=== PATIENT | female | born 1960 | race Caucasian/White ===

== ENCOUNTER 2020-07-12 08:19 | Day surgery (SDC) | payer OTHER ==
[~2020-07-12] VITALS: Ht 157.5 cm; Wt 61.4 kg
[~2020-07-12 08:19] MED LIST: CALCIUM500 MG PO; MULTIVITAMINS1 EAC7 PO; OMEGA 3 1,0001 EACH PO; VITAMIN D3 COM1 EACH PO
[2020-07-12] MEDS ORDERED: VITAMIN D350 MC3 PO (08:42)
--- NOTE | 2020-07-12 10:10 | NUR ---
07/12/20 1010 Sheets,Janneth 1000 PT ARRIVED TO PACU ON 2L VIA NC, VSS. PT WAKES EASILY AND DENIES PAIN AND NAUSEA.
--- NOTE | 2020-07-17 08:31 | OR ---
[facility] [address] [place], [place] [address] Signed DATE OF OPERATION: 07/12/2020 SURGEON: Sushant Madden MD PREOPERATIVE DIAGNOSES: 1. Colon surveillance. 2. History of colonic polyps. POSTOPERATIVE DIAGNOSIS: Diminutive polyp of the rectosigmoid (excised). PROCEDURE: Total colonoscopy to cecum with cold morcellation polypectomies. ANESTHESIA: Intravenous sedation, fentanyl 100 mcg and Versed 4 mg. INDICATIONS: This 59-year-old white woman is a patient of Joe Bradley M.D. in [place], [place]. She is here for surveillance colonoscopy. She lives in [place], [place]. She has no family history of colon cancer and no symptoms of bleeding, diarrhea, or constipation. FINDINGS: The prep was excellent. Complete colonoscopy was undertaken of the cecum without question. She had no sign of colitis or diverticular formation or large polyp, but did have what appeared to be diminutive polyps of the rectosigmoid, which were excised. DESCRIPTION OF PROCEDURE: The patient was brought to the endoscopy suite and placed in lateral decubitus position, given intravenous sedation to the point of slurred speech and nystagmus. Digital rectal examination was normal. An Olympus video colonoscope was passed into the rectum after normal anorectal examination and advanced without problem to the cecum. The ileocecal valve and appendiceal orifice were normal. The scope was withdrawn from that point. Examination throughout showed no sign of abnormality until the rectosigmoid, where a few small diminutive appearing polyps were noted. These may well be hyperplastic. They were excised in total with cold morcellation technique. Retroflexed view of the rectum was normal. Scope was removed. The patient was taken to the recovery room in good condition. Electronically Signed By: SUSHANT MADDEN MD 07/17/20 0831 PATIENT NAME: BRIA CARRION I OPERATIVE REPORT DATE OF : 62 REPORT #: [id number] PHYSICIAN: SUSHANT MADDEN MD PCP: KIRSTIN KEANE MD REPORT IS CONFIDENTIAL AND NOT TO BE RELEASED WITHOUT AUTHORIZATION [facility] [address] [place], [place] [address] Signed CONCLUDING DIAGNOSIS: Diminutive polyps of the rectosigmoid. PLAN: Recommend repeat colonoscopy in 5 years depending on pathology report. Incidentally noted was a small nodule of her . She has had this for an indeterminate amount of time. Excision in the office can be undertaken under local if she prefers, and if desired. It does not have signs of ulceration or significant pigmentation. MD ELVIRA Connolly/NANCY /[id number] cc: Joe Bradley MD Copies: JOE BRADLEY MD ~ Electronically Signed By: SUSHANT MADDEN MD 07/17/20 0831 PATIENT NAME: BRIA CARRION I OPERATIVE REPORT DATE OF : 62 REPORT #: [id number] PHYSICIAN: SUSHANT MADEDN MD PCP: KIRSTIN KEANE MD REPORT IS CONFIDENTIAL AND NOT TO BE RELEASED WITHOUT AUTHORIZATION
== END 2020-07-12 10:51 | disposition home or self-care (01) ==
LOC: OPS 08:19 → DS 08:25 → OPS 09:00 → DS 09:30 → OPS 10:51
PROVIDERS: ATTEND Surgery
PROC: 0DBN8ZX Excision of Sigmoid Colon, Via Natural or Artificial Opening Endoscopic, Diagnostic (ICD-10-PCS; principal; 2020-07-12 09:00)
DX: Z12.11 Encounter for screening for malignant neoplasm of colon (principal); K63.5 Polyp of colon; N60.11 Diffuse cystic mastopathy of right breast; Z86.010 Personal history of colon polyps; Z79.899 Other long term (current) drug therapy
CPT/HCPCS: 99153; G0500; J2250; J3010; J7121

== ENCOUNTER 2022-07-21 10:51 | Day surgery (SDC) | payer OTHER ==
[~2022-07-21] VITALS: Ht 157.5 cm; Wt 62.7 kg
[~2022-07-21 10:51] MED LIST changes: +VITAMIN D350 MC3 PO
[2022-07-21] MEDS ORDERED: MELATONIN3 MG PO (11:16)
--- NOTE | 2022-07-21 12:52 | NUR ---
07/21/22 1252 Ibeth Richardson 1249 PATIENT ARRIVES TO PACU SLEEPING. AWAKENS WITH VERBAL STIMULI, BACK TO SLEEP WHEN NOT STIMULATED. RESP EVEN AND UNLABORED, NC TURNED OFF ON ARRIVAL TO PACU, ROOM AIR SATS 100%.
--- NOTE | 2022-07-22 08:10 | OR ---
[facility] [address] [place], [place] [address] Signed DATE OF OPERATION: 07/21/2022 SURGEON: Sushant Madden MD PREOPERATIVE DIAGNOSIS: Episodic dysphagia. POSTOPERATIVE DIAGNOSES: Mild distal esophagitis and midesophageal inflammatory changes, otherwise normal. PROCEDURE: Esophagogastroduodenoscopy with biopsy. ANESTHESIA: Intravenous sedation; fentanyl 100 mcg and Versed 4 mg. INDICATION: This 61-year-old white woman is a patient Dr. Kirstin Louise and has had episodes of dysphagia. She had an episode where steak was "stuck" on April 27, 2022, where she was evaluated in the [facility] emergency room and given morphine, which ultimately was regurgitated. She does have clinical symptoms suggestive of gastroesophageal reflux. She was recommended to take Prilosec on a daily basis and her symptoms have improved a fair amount. She is admitted at this time to undergo upper endoscopy to better characterize the problem particularly to assess esophageal stricture and also for eosinophilic esophagitis. She understands the risk of upper endoscopy including but not limited to bleeding, infection, perforation, and so on. FINDINGS: Upper endoscopy was easily performed. Vocal cords including the posterior aspect appeared normal. The midesophagus did have mild concentric ring formation suggestive though not diagnostic of eosinophilic esophagitis. The distal esophagus had mild inflammation. There was no sign of Cortez's epithelium. Notably, the flap valve was quite good. The stomach and duodenum were otherwise normal. CLOtest was negative 20 minutes post procedure. DESCRIPTION OF PROCEDURE: The patient was brought to the endoscopy suite, given topical hypopharyngeal lidocaine anesthetic and placed in the lateral decubitus position. She was given intravenous sedation with full cardiopulmonary monitoring to the point of slurred speech and nystagmus. A bite block was placed. Electronically Signed By: SUSHANT MADDEN MD 07/22/22 0810 PATIENT NAME: BRIA CARRION I OPERATIVE REPORT DATE OF : 62 REPORT #: [id number] PHYSICIAN: SUSHANT MADDEN MD PCP: KIRSTIN LOUISE MD REPORT IS CONFIDENTIAL AND NOT TO BE RELEASED WITHOUT AUTHORIZATION [facility] [address] [place], [place] [address] Signed An Olympus video upper endoscope was passed in the hypopharynx. The vocal cords were thoroughly examined and normal. Scope was passed down the esophagus noting a few benign-appearing nodules in the proximal esophagus. The scope was advanced ultimately to the distal esophagus where there was no evidence of Cortez's epithelium or neoplasm. There was mild inflammation, however. The scope was passed in the stomach, which was insufflated with air. Rugal folds were normal. Scope was passed to the antrum and then through the normal-appearing pylorus into the duodenum. Duodenum appeared normal. Biopsies were taken of the 2nd and bulbar portions. The scope was withdrawn and biopsies taken of the antrum for both TRAVIS and pathologic testing. Retroflexed view was undertaken showing a surprisingly good flap valve. There was no sign of hiatal hernia proper. Further withdrawal of the scope allowed for biopsy of the distal esophageal mucosa and ultimately the midesophageal mucosa which had a ring-like appearance in some areas suggestive though not diagnostic of the eosinophilic esophagitis. Further withdrawal after biopsy of some of the nodules in the more proximal esophagus. The scope was removed and the patient was taken to the recovery room in good condition. CONCLUDING DIAGNOSES: Improvement of dysphagia with continuous PPI use; no evidence of hiatal hernia proper. Benign-appearing nodules of the mucosa of the proximal esophagus and concentric rings of the midesophagus suggestive though not diagnostic of eosinophilic esophagitis. PLAN: We will have her continue with Prilosec. We will check path report and if findings of eosinophilic esophagitis are noted, initiate topical steroid (fluticasone). She will return to see us in September or so. MD ELVIRA Connolly/MODL /[id number] cc: Kirstin Louise MD Electronically Signed By: SUSHANT MADDEN MD 07/22/22 0810 PATIENT NAME: BRIA CARRION I OPERATIVE REPORT DATE OF : 62 REPORT #: [id number] PHYSICIAN: SUSHANT MADDEN MD PCP: KIRSTIN LOUISE MD REPORT IS CONFIDENTIAL AND NOT TO BE RELEASED WITHOUT AUTHORIZATION [facility] [address] [place] [id number] Signed Copies: KIRSTIN LOUISE MD ~ Electronically Signed By: SUSHANT MADDEN MD 07/22/22 0810 PATIENT NAME: BRIA CARRION Charly OPERATIVE REPORT DATE OF : 62 REPORT #: [id number] PHYSICIAN: SUSHANT MADDEN MD PCP: KIRSTIN LOUISE MD REPORT IS CONFIDENTIAL AND NOT TO BE RELEASED WITHOUT AUTHORIZATION
--- NOTE | 2022-07-24 15:30 | PATH ---
[facility] [facility] [address] [facility] [place], [place] [address] Signed SPECIMEN(S): A DUODENAL BIOPSY SPECIMEN(S): B ANTRUM/PYLORUS BIOPSY SPECIMEN(S): C LOWER ESOPHAGUS BIOPSY SPECIMEN(S): D MIDDLE ESOPHAGUS BIOPSY SPECIMEN(S): E UPPER ESOPHAGUS NODULARITY SPECIMEN SOURCE: A. DUODENAL BIOPSY B. ANTRUM/PYLORUS BIOPSY C. LOWER ESOPHAGUS BIOPSY D. MIDDLE ESOPHAGUS BIOPSY E. UPPER ESOPHAGUS NODULARITY CLINICAL HISTORY: Esophageal dysphagia. FINAL PATHOLOGIC DIAGNOSIS: A. Duodenal biopsy: - Benign duodenal mucosa, negative for specific diagnostic abnormality. B. Antrum/pylorus, biopsy: - Benign gastric-type mucosa with focal slight chronic inflammation. - Negative for evidence of Helicobacter organisms on routine HE-stained sections. C. Lower esophagus, biopsy: - Benign esophageal mucosa with increased epithelial eosinophils (measuring up to 45 per high-power field). - Negative for glandular mucosa. - See Comment. D. Middle esophagus, biopsy: - Benign esophageal mucosa with increased epithelial eosinophils (measuring up to 35 per high-power field). - See Comment. E. Upper esophagus nodularity: - Benign esophageal mucosa with focal squamous acanthosis and reactive features. - Slightly increased epithelial eosinophils (measuring up to 10 per high-power field). COMMENT: The increased eosinophils within the esophagus are consistent with eosinophilic esophagitis in the appropriate clinical context. Clinical correlation is PATIENT NAME: BRIA CARRION I PATHOLOGY DATE OF : 62 REPORT #: [id number] PHYSICIAN: JOSE PATHOLOGY PCP: KIRSTIN KEANE MD REPORT IS CONFIDENTIAL AND NOT TO BE RELEASED WITHOUT AUTHORIZATION [facility] [address] [place], [place] [address] Signed requested. JVR:wero:C2NR MICROSCOPIC EXAMINATION: Histologic sections of all submitted blocks are examined by light microscopy. These findings, together with the gross examination, support the pathologic diagnosis. GROSS DESCRIPTION: Five specimens are received in five containers, labeled "JH." A. The specimen, labeled "JH, 1," and designated on the requisition "duodenum biopsy," is received in formalin and consists of four robles soft tissue fragment(s) that measure 0.3 up to 0.4 cm in greatest dimension. The specimen is entirely submitted in cassette (A1). B. The specimen, labeled "JH, 2," and designated on the requisition "antrum/pylorus biopsy," is received in formalin and consists of two robles soft tissue fragment(s) that measure 0.4 and 0.5 cm in greatest dimension. The specimen is entirely submitted in cassette (B1). C. The specimen, labeled "JH, 3," and designated on the requisition "lower esophagus biopsy," is received in formalin and consists of four robles soft tissue fragment(s) that measure 0.2-0.5 cm in greatest dimension. The specimen is entirely submitted in cassette (C1). D. The specimen, labeled "JH, 4," and designated on the requisition "mid esophagus biopsy," is received in formalin and consists of multiple robles-white to robles soft tissue fragment(s) that measure less than 0.1 up to 0.7 cm in greatest dimension. The specimen is entirely submitted in cassette (D1). E. The specimen, labeled "JH, 5," and designated on the requisition "upper esophagus biopsy," is received in formalin and consists of one elongated, robles-white, brown freckled soft tissue fragment that measures 0.7 cm in greatest dimension. The specimen is entirely submitted in cassette (E1). AI (under the direct supervision of a pathologist) PERFORMING LABORATORY: The technical component was performed by [facility], [address] [place] [id number] (CLIA# [id number]). Professional interpretation was performed by [facility], [address] [place] [id number] (CLIA#: [id number]). Diagnostician: Lenin Boland MD PATIENT NAME: BRIA CARRION I PATHOLOGY DATE OF : 62 REPORT #: [id number] PHYSICIAN: JOSE SANFORD PCP: KIRSTIN KEANE MD REPORT IS CONFIDENTIAL AND NOT TO BE RELEASED WITHOUT AUTHORIZATION [facility] [address] [place] [address] Signed Pathologist Electronically Signed 07/24/2022 Copies: ~ PATIENT NAME: BRIA CARRION I PATHOLOGY DATE OF : 62 REPORT #: [id number] PHYSICIAN: JOSE PATHOLOGY PCP: KIRSTIN KEANE MD REPORT IS CONFIDENTIAL AND NOT TO BE RELEASED WITHOUT AUTHORIZATION
== END 2022-07-21 13:25 | disposition home or self-care (01) ==
LOC: DS 10:51 → OPS 10:51 → DS 10:55 → OPS 12:00 → DS 12:00 → OPS 13:25
PROVIDERS: ATTEND Surgery
PROC: 0DB68ZX Excision of Stomach, Via Natural or Artificial Opening Endoscopic, Diagnostic (ICD-10-PCS; 2022-07-21)
PROC: 0DB18ZX Excision of Upper Esophagus, Via Natural or Artificial Opening Endoscopic, Diagnostic (ICD-10-PCS; 2022-07-21)
PROC: 0DB38ZX Excision of Lower Esophagus, Via Natural or Artificial Opening Endoscopic, Diagnostic (ICD-10-PCS; principal; 2022-07-21 12:00)
DX: K20.90 Esophagitis, unspecified without bleeding (principal); Z86.16 Personal history of COVID-19
CPT/HCPCS: 99153; G0500; J2250; J3010; J7121